=== PATIENT | female | born 1990 | race American Indian/Alaskan Native ===

== ENCOUNTER 2018-05-17 11:47 | Emergency (ER) | payer OTHER ==
[2018-05-17 12:11] VITALS: BP 156/81; PULSE 82; RESP 18; TEMP 99; O2SAT 99
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
== END 2018-05-17 13:26 | disposition home or self-care (01) ==
LOC: ED 11:47 → MERGE 11:47 → ED 13:26
DX: M54.2 Cervicalgia (principal); V89.2XXA Person injured in unspecified motor-vehicle accident, traffic, initial encounter